=== PATIENT | female | born 1950 | race Caucasian/White ===

== ENCOUNTER 2018-05-17 14:03 | Inpatient (IN) ==
[2018-05-17] MEDS ORDERED: SODIUM CHLORIDE 0.9% 500 ML IV STA (14:32)
[2018-05-17 14:43] LABS: Basophils % 0.9 % (0.0-0.8); Eosinophils # 0.1 10*3/uL (0.0-0.87); Eosinophils % 3.1 % (0.00-10.9); Hematocrit 35.2 VOL% (35.7-47.0); Hemoglobin 12.1 GM/DL (12.0-16.0); Immature Granulocytes % 1.2 %; Immature Granulocytes Absolute 0.04 #; Lymphocytes # 1.4 10*3/uL (1.4-4.0); Mean Corpuscular HGB Conc 34.4 GM/DL (32-36); Mean Corpuscular Hemoglobin 33 PG (27-34); Mean Corpuscular Volume 96.7 FL (87-102); Monocytes # 0.4 10*3/uL (0.11-0.8); Monocytes % 12.1 % (1.7-12.7); Neutrophils # 1.3 10*3/uL (1.4-7.4); Neutrophils % 39.7 % (38.7-73.9); Platelet Count 230 T/CUMM (130-400); Red Blood Count 3.64 MC/CUMM (3.8-5.5); White Blood Count 3.2 T/CUMM (4-12)
[2018-05-17 14:56] LABS: Apearance,Urine CLEAR (Clear); Bacteria,Urine Occasional /HPF (Few); Bilirubin,Urine Negative (Negative); Blood, Urine Small mg/dL (Negative); Glucose,Urine (UA) 50 mg/dL (Negative); Hyaline Casts,Urine 1 /LPF (0-3); Ketones,Urine 5 mg/dL (Negative); Mucus,Urine Occasional /LPF (Occasional); Nitrite,Urine Negative (Negative); Protein,Urine Negative; RBC,Urine 12 /HPF (0-4); Squamous Epithelial Cell,Urine Occasional /HPF (0-10); Urine Color Yellow (Yellow); Urine Specific Gravity 1.014 (1.001-1.035); Urine Urobilinogen < 2.0 EU/DL (0.2-1.0); WBC,Urine 2 /HPF (0-6)
[2018-05-17 15:00] LABS: Barbiturates Screen,Urine Negative (Negative); Benzodiazepines Screen,Urine Positive (Negative); Cannabinoid Screen,Urine Negative (Negative); Opiate Screen,Urine Negative (Negative); Phencyclidine Screen,Urine Negative (Negative)
[2018-05-17 15:02] LABS: Ammonia 66 UMOL/L (11-32)
[2018-05-17 15:13] LABS: Alanine Aminotransferase 58 U/L (13-56); Albumin 3.3 G/DL (3.4-5.0); Alkaline Phosphatase 99 U/L (45-117); Aspartate Amino Transferase 51 U/L (0-37); Bilirubin,Total < 0.39 MG/DL (0.2-1.0); Blood Urea Nitrogen 14 MG/DL (7-18); Calcium 8.2 MG/DL (8.5-10.1); Glucose 151 MG/DL (74-106); Osmolality,Calculated 286.1 MOS/KG (273-304); Potassium 3.8 MMOL/L (3.5-5.1); Sodium 142 MMOL/L (136-145); Total Protein 6.6 G/DL (6.4-8.3)
[2018-05-17] MEDS ORDERED: ACETAMINOPHEN 325 MG TABLET PO PRN (17:15)
[2018-05-17] MEDS ORDERED: ONDANSETRON 4 MG/2 ML VIAL IV PRN (17:15)
[2018-05-17] MEDS: SODIUM CHLORIDE 0.9% 1,000 ML IV SCH (17:23)
[2018-05-17 18:06] LABS: Folate 15.7 NG/ML (5.4-24.0); Vitamin B12 464 PG/ML (211-911)
[2018-05-17] MEDS: LORazepam 2 MG/1 ML VIAL IV PRN (20:10)
[2018-05-17] MEDS: DOCUSATE SODIUM 100 MG CAPSULE PO SCH (20:10)
[2018-05-17] MEDS: CLORAZEPATE 7.5 MG TABLET PO SCH (20:10)
[2018-05-18] MEDS: LORazepam 2 MG/1 ML VIAL IV PRN ×2 (00:23→07:52)
[2018-05-18] MEDS: SODIUM CHLORIDE 0.9% 1,000 ML IV SCH ×3 (01:05→18:35)
[2018-05-18 04:48] LABS: Basophils % 0.9 % (0.0-0.8); Eosinophils # 0.1 10*3/uL (0.0-0.87); Eosinophils % 4.1 % (0.00-10.9); Hematocrit 32.2 VOL% (35.7-47.0); Hemoglobin 10.9 GM/DL (12.0-16.0); Immature Granulocytes % 0.6 %; Immature Granulocytes Absolute 0.02 #; Lymphocytes # 1.8 10*3/uL (1.4-4.0); Lymphocytes % 51.9 % (21.3-54.2); Mean Corpuscular HGB Conc 33.9 GM/DL (32-36); Mean Corpuscular Hemoglobin 33 PG (27-34); Mean Corpuscular Volume 98.2 FL (87-102); Mean Platelet Volume 9.6 FL (9.6-12.0); Monocytes # 0.4 10*3/uL (0.11-0.8); Monocytes % 11.7 % (1.7-12.7); Neutrophils # 1.1 10*3/uL (1.4-7.4); Neutrophils % 30.8 % (38.7-73.9); Platelet Count 197 T/CUMM (130-400); Red Blood Count 3.28 MC/CUMM (3.8-5.5); Red Cell Distribution Width 13.2 % (9.3-17.3); White Blood Count 3.4 T/CUMM (4-12)
[2018-05-18 05:06] LABS: Calcium 7.9 MG/DL (8.5-10.1); Potassium 3.5 MMOL/L (3.5-5.1)
[2018-05-18 05:11] LABS: Albumin 2.7 G/DL (3.4-5.0); Bilirubin,Total 1.2 MG/DL (0.2-1.0); Calcium 7.8 MG/DL (8.5-10.1); Potassium 3.4 MMOL/L (3.5-5.1); Total Protein 5.7 G/DL (6.4-8.3)
[2018-05-18 05:37] LABS: Lymphocytes 65 % (20-55); Platelet Estimate Normal; Segmented Neutrophils 33 % (50-85); Total Cells Counted 100
[2018-05-18 05:38] LABS: Polychromasia Few
[2018-05-18] MEDS: LEVOTHYROXINE 50 MCG TABLET PO SCH (06:11)
[2018-05-18] MEDS ORDERED: HALOPERIDOL 5 MG/ML AMP IV PRN (09:17)
[2018-05-18] MEDS: LISINOPRIL 10 MG TABLET PO SCH (10:04)
[2018-05-18] MEDS: ARIPiprazole 2 MG TABLET PO SCH (10:04)
[2018-05-18] MEDS: PANTOPRAZOLE 40 MG TABLET PO SCH (10:04)
[2018-05-18] MEDS: SIMVASTATIN 20 MG TABLET PO SCH (10:04)
[2018-05-18] MEDS: CLORAZEPATE 7.5 MG TABLET PO SCH ×3 (10:04→21:15)
[2018-05-18] MEDS: DOCUSATE SODIUM 100 MG CAPSULE PO SCH ×2 (10:04→21:15)
[2018-05-18] MEDS: SERTRALINE 50 MG TABLET PO SCH (10:05)
[2018-05-18] MEDS ORDERED: HALOPERIDOL 5 MG/ML AMP IM PRN (20:37)
[2018-05-19] MEDS: SODIUM CHLORIDE 0.9% 1,000 ML IV SCH ×3 (01:29→17:28)
[2018-05-19 05:51] LABS: Calcium 7.6 MG/DL (8.5-10.1); Osmolality,Calculated 285.7 MOS/KG (273-304); Potassium 3.8 MMOL/L (3.5-5.1)
[2018-05-19] MEDS: LEVOTHYROXINE 50 MCG TABLET PO SCH (05:55)
[2018-05-19] MEDS: LISINOPRIL 10 MG TABLET PO SCH (08:31)
[2018-05-19] MEDS: PANTOPRAZOLE 40 MG TABLET PO SCH (08:32)
[2018-05-19] MEDS: DOCUSATE SODIUM 100 MG CAPSULE PO SCH ×2 (08:32→21:04)
[2018-05-19] MEDS: CLORAZEPATE 7.5 MG TABLET PO SCH ×3 (08:32→21:04)
[2018-05-19] MEDS: SIMVASTATIN 20 MG TABLET PO SCH (08:32)
[2018-05-19] MEDS: SERTRALINE 50 MG TABLET PO SCH (08:32)
[2018-05-19] MEDS: ARIPiprazole 2 MG TABLET PO SCH (08:32)
[2018-05-20] MEDS ORDERED: ZALEPLON 5 MG CAPSULE PO PRN (00:36)
[2018-05-20] MEDS: LORazepam 2 MG/1 ML VIAL IV PRN (04:10)
[2018-05-20] MEDS: LEVOTHYROXINE 50 MCG TABLET PO SCH (05:56)
[2018-05-20 07:43] VITALS: BP 162/79
== END 2018-05-20 08:14 | disposition home or self-care (01) | DRG 897 ==
LOC: N.ED 14:03 → N.EDINP 15:42 → N.CC 16:15 → N.2E 05-19 18:58
PROVIDERS: ADMIT Family Medicine; ATTEND Family Medicine

== ENCOUNTER 2021-07-05 09:51 | Inpatient (IN) ==
[2021-07-05 10:33] LABS: Basophils % 0.2 % (0.0-0.8); Hematocrit 29.2 VOL% (35.7-47.0); Hemoglobin 9.2 GM/DL (12.0-16.0); Immature Granulocytes Absolute 0.09 #; Lymphocytes # 0.4 10*3/uL (1.4-4.0); Lymphocytes % 4.6 % (21.3-54.2); Mean Corpuscular HGB Conc 31.5 GM/DL (32-36); Mean Corpuscular Volume 95.4 FL (87-102); Mean Platelet Volume 9.3 FL (9.6-12.0); Monocytes % 4.6 % (1.7-12.7); Neutrophils % 89.6 % (38.7-73.9); Platelet Count 199 T/CUMM (130-400); Red Blood Count 3.06 MC/CUMM (3.8-5.5); Red Cell Distribution Width 14.8 % (9.3-17.3)
[2021-07-05 10:56] LABS: Hypochromia Slight; Lymphocytes 3 % (20-55); Segmented Neutrophils 93 % (50-85); Total Cells Counted 100
[2021-07-05 10:57] LABS: Albumin 2.3 G/DL (3.4-5.0); Bilirubin,Total 0.6 MG/DL (0.20-1.00); Calcium 9.1 MG/DL (8.5-10.1); Microcytosis Slight; Osmolality,Calculated 274.2 MOS/KG (273-304); Potassium 3.7 MMOL/L (3.5-5.1); Total Protein 7.3 G/DL (6.4-8.2)
[2021-07-05 11:12] LABS: PT Patient Result 11.5 SECS (10.5-12.0); Partial Thromboplastin Time 28.8 SECS (23.8-32.1)
[2021-07-05] MEDS ORDERED: ONDANSETRON 4 MG/2 ML VIAL IV PRN (12:02)
[2021-07-05] MEDS ORDERED: ACETAMINOPHEN 325 MG TABLET PO PRN (12:02)
[2021-07-05] MEDS ORDERED: ENOXAPARIN 40 MG/0.4 ML SYRINGE SUBCUT SCH (13:00)
[2021-07-05] MEDS: SODIUM CHLORIDE 0.45% 1,000 ML IV SCH (15:09)
[2021-07-05] MEDS: HYDROmorphone 2 MG/1 ML VIAL IV PRN (15:52)
[2021-07-05] MEDS ORDERED: CYCLOBENZAPRINE 10 MG TABLET PO PRN (20:03)
[2021-07-05] MEDS ORDERED: ZALEPLON 5 MG CAPSULE PO PRN (20:03)
[2021-07-05] MEDS ORDERED: VANCOMYCIN INJ 1,000 MG in SODIUM CHLORIDE 0.9% 250 ML IV SCH (20:30)
[2021-07-05] MEDS ORDERED: POLYETHYLENE GLYCOL POWDER 17 GM PACK PO PRN (20:42)
[2021-07-05] MEDS: DOCUSATE SODIUM 100 MG CAPSULE PO SCH (20:53)
[2021-07-05] MEDS: GABAPENTIN 300 MG CAPSULE PO SCH (20:54)
[2021-07-05] MEDS: PRIMIDONE 50 MG TABLET PO SCH (20:54)
[2021-07-05] MEDS ORDERED: SIMVASTATIN 20 MG TABLET PO SCH (21:00)
[2021-07-05] MEDS ORDERED: cefTRIAXone 1,000 MG in SODIUM CHLORIDE 0.9% 100 ML IV SCH (21:00)
[2021-07-05] MEDS ORDERED: DONEPEZIL 10 MG TABLET PO SCH (21:00)
[2021-07-05] MEDS: SODIUM CHLORIDE 0.9% 1,000 ML IV SCH (21:05)
[2021-07-05] MEDS: WHITE PETROLATUM 30 GM TUBE TOP SCH (22:19)
[2021-07-05] MEDS: ALPRAZolam 0.25 MG TABLET PO PRN (23:26)
[2021-07-06] MEDS ORDERED: VANCOMYCIN INJ 1,500 MG in SODIUM CHLORIDE 0.9% 500 ML IV SCH
[2021-07-06] MEDS: WHITE PETROLATUM 30 GM TUBE TOP SCH ×3 (03:19→16:15)
[2021-07-06] MEDS ORDERED: LEVOTHYROXINE 75 MCG TABLET PO SCH (06:30)
[2021-07-06 06:52] LABS: Basophils % 0.3 % (0.0-0.8); Eosinophils % 0.3 % (0.00-10.9); Hematocrit 28.6 VOL% (35.7-47.0); Immature Granulocytes % 0.9 %; Immature Granulocytes Absolute 0.05 #; Lymphocytes # 0.5 10*3/uL (1.4-4.0); Mean Corpuscular HGB Conc 31.5 GM/DL (32-36); Mean Corpuscular Volume 96.9 FL (87-102); Mean Platelet Volume 9.7 FL (9.6-12.0); Monocytes % 7.1 % (1.7-12.7); Neutrophils % 82.4 % (38.7-73.9); Platelet Count 182 T/CUMM (130-400); Red Blood Count 2.95 MC/CUMM (3.8-5.5); Red Cell Distribution Width 14.6 % (9.3-17.3); White Blood Count 5.8 T/CUMM (4-12)
[2021-07-06 07:06] LABS: Calcium 9.1 MG/DL (8.5-10.1); Osmolality,Calculated 269.2 MOS/KG (273-304); Potassium 3.3 MMOL/L (3.5-5.1)
[2021-07-06] MEDS ORDERED: CALCITONIN NASAL SPRAY 3.7 ML BOTTLE ONE NARE SCH (09:00)
[2021-07-06] MEDS ORDERED: lisinopriL 10 MG TABLET PO SCH (09:00)
[2021-07-06] MEDS ORDERED: PANTOPRAZOLE 40 MG TABLET PO SCH (09:00)
[2021-07-06] MEDS ORDERED: ARIPiprazole 2 MG TABLET PO SCH (09:00)
[2021-07-06] MEDS ORDERED: SERTRALINE 100 MG TABLET PO SCH (09:00)
[2021-07-06] MEDS ORDERED: predniSONE 20 MG TABLET PO SCH (09:00)
[2021-07-06] MEDS: SODIUM CHLORIDE 0.9% 1,000 ML IV SCH ×2 (10:20→16:51)
[2021-07-06] MEDS: DOCUSATE SODIUM 100 MG CAPSULE PO SCH (10:24)
[2021-07-06] MEDS: PRIMIDONE 50 MG TABLET PO SCH ×2 (10:24→16:15)
[2021-07-06] MEDS: GABAPENTIN 300 MG CAPSULE PO SCH ×2 (10:24→16:15)
[2021-07-06] MEDS: SODIUM CHLORIDE 0.45% 1,000 ML IV SCH (10:47)
[2021-07-06] MEDS: HYDROmorphone 2 MG/1 ML VIAL IV PRN (11:17)
[2021-07-06] MEDS: ALPRAZolam 0.25 MG TABLET PO PRN (12:40)
[2021-07-06] MEDS ORDERED: LORazepam 2 MG/1 ML VIAL IV ONE (15:03)
[2021-07-06 15:59] VITALS: BP 135/88
== END 2021-07-06 16:30 | disposition swing bed (61) | DRG 95 ==
LOC: N.ED 09:51 → N.EDINP 12:02 → N.3E 12:52
PROVIDERS: ADMIT Family Medicine; ATTEND Family Medicine